=== PATIENT | female | born 1965 | race Caucasian/White ===

== ENCOUNTER 2017-07-10 11:14 | Emergency (ER) | payer OTHER ==
[~2017-07-10] VITALS: Ht 162.6 cm; Wt 80.3 kg
[~2017-07-10 11:14] MED LIST: FLONASE 50 MCG16 GM; KEFLEX 500MG.500 MG PO; NOMEDS XX; NORCO 325 MG-51 TAB PO; PRINIVIL10 MG PO
--- OUTSIDE RECORDS SUMMARY | 2017-07-10 11:22 | External Medical Summary Rpt | CCD ---
Author Author , GIANNA KATZ Address Unknown Phone [email or web address] Care Team Providers Care System Engineer Name Role Phone HARRINGTON ALL, HARRINGTON ALL Unavailable Unavailable FRYMAN EUG, FRYMAN Unavailable Unavailable [facility] Unavailable Unavailable INC, [facility], Unavailable Unavailable [facility] Un[facility]available [facility], [facility] Unavailable Unavailable [facility], [facility], Unavailable Unavailable [facility] Purpose Continuity of Care Document - 07-13-2015 through 2016 Problems Code Diagnosis DOS Provider Status E119 TYPE 2 01-31-2016 [facility] DIABETES [facility] MELLITUS WITHOUT COMPLICATIO NS I10 ESSENTIAL 01-31-2016 [facility] HYPERTENSIO N [id number] UNSPECIFIED 01-31-2016 [facility] ASTHMA [facility] UNCOMPLICAT ED K219 GASTRO-ESOP 01-31-2016 [facility] REFLUX [facility] DISEASE WITHOUT ESOPHAGITIS N200 CALCULUS OF 01-31-2016 [facility] KIDNEY [facility] N201 CALCULUS OF 01-31-2016 [facility] PSC [id number] OTHER LONG 01-31-2016 [facility] CURRENT DRUG THERAPY Z885 ALLERGY 01-31-2016 [facility] STATUS TO HOSPITAL NARCOTIC AGENT STATUS [id number] OTH SPEC 01-11-2016 [facility] DENSITY [facility] ASS STRUCTURE LT THIGH R1031 RIGHT LOWER 01-02-2016 [facility] J309 ALLERGIC 12-28-2015 [facility] UNSPECIFIED GROUP [id number] SPONDYLOSIS 12-28-2015 [facility] W/O MEDICAL MYELOPATH/R IMAGING ASS ADICULOPATH Y LUMB RGN [id number] SPONDYLOSIS 12-28-2015 [facility] W/O MEDICAL MYELOPATH/R IMAGING ASS ADICULPATHY LS RGN M545 LOW BACK 12-28-2015 [facility] PAIN [facility] M546 PAIN IN 12-28-2015 [facility] THORACIC [facility] SPINE [facility] [id number] UNSPECIFIED 12-28-2015 [facility] INJURY [facility]ICAL LOWER BACK IMAGING ASS INITIAL ENCOUNTER R5383 OTHER 07-13-2015 [facility] Procedures Procedure DOS Code Location Performer Comment GLUC BLD 55005 [facility] GLUC MNTR [address] [place] [address] DEV CLEARED FDA SPEC HOME USE INJECTION J[address] CEFAZOLIN SODIUM 500 MG INJECTION J2405 [address] ONDANSETR ON HCL PER 1 MG INJECTION J2704 [facility] PROPOFOL [address] [place] [address] 10 MG INJECTION J3010 [facility] FENTANYL [address] [place] [address] CITRATE 0.1 MG LITHOTRIP 29959 [facility] SY [address] [place] [address] [employer] SHOCK WAVE INJECTION J2001 [address] LIDOCAINE HCL INTRAVENO US INFUS 10 MG RADEX 98493 [facility] ABDOMEN [address] [place] [address] ANTEROPOS TERIOR VIEW ECG [address] ECG W/LEAST 12 LDS TRCG ONLY W/O I&R CUL BACT 11393 TED JE[facility] AEROBIC 6 [facility] ADDL INC INC METHS DEFINITIV E EA ISOL CULTURE 31061 T[facility] BACTERIAL 6 [facility] INC INC QUANTTATI VE COLONY COUNT URINE SUSCEPTIB 28709 TED JEAN LTY STDY 6 [facility]OS[facility] ANTIMICRB INC INC IAL MICRO/AGA R DILUTJ DXA BONE 78916 [facility] ALL DENSITY 6 MEDICAL STUDY 1/> [place] [address] [facility] ALL ABDOMEN & 6 MEDICAL PELVIS IMAGING W/O ASS CONTRAST MATERIAL RADEX 72967 [facility] ALL SPINE 6 MEDICAL THORACIC IMAGING 2 VIEWS ASS RADEX 91595 [facility] ALL SPINE 6 MEDICAL LUMBOSACR IMAGING AL 2/3 ASS VIEWS COLLECTIO 27458 [facility] FRYMAN N VENOUS 6 PHYSICIAN EUG BLOOD S GROUP VENIPUNCT URE Encounters Encounter Start End Date Code Location Performer Type Date HOSPITAL [address] OUTPATIEN [facility] [address]67 [facility]EN 6 6 PHYSICIAN EUG T VISIT S GROUP 15 MINUTES OFFICE 04739 [facility] OUTPATIEN 6 6 PHYSICIAN EUG T VISIT S GROUP 15 MINUTES OFFICE 06539 [facility] OUTPATIEN 5 5 PHYSICIAN EUG T VISIT S GROUP 15 MINUTES
--- OUTSIDE RECORDS SUMMARY | 2017-07-10 11:22 | External Medical Summary Rpt | CCD ---
Author Author , GIANNA KATZ Address Unknown Phone [email or web address] Care Team Providers Care Economic Specialist Name Role Phone HARRINGTON ALL, HARRINGTON ALL Unavailable Unavailable CLEMENCIA JR RIOS, CLEMENCIA Unavailable Unavailable JR RIOS FRYMAN EUG, FRYMAN Unavailable Unavailable [facility] Unavailable Unavailable INC, [facility], Unavailable Unavailable [facility] Unavailable Unavailable [facility], [facility] Unavailable [facility]available [facility], [facility], Unavailable Unavailable [facility] Purpose Continuity of Care Document - 07-13-2015 through 2016 Problems Code Diagnosis DOS Provider Status E119 TYPE 2 01-31-2016 [facility] DIABETES [facility] MELLITUS WITHOUT COMPLICATIO NS I10 ESSENTIAL 01-31-2016 [facility] HYPERTENSIO N [id number] UNSPECIFIED 01-31-2016 [facility] ASTHMA [facility] UNCOMPLICAT ED K219 GASTRO-ESOP 01-31-2016 [facility] REFLUX [facility] DISEASE WITHOUT ESOPHAGITIS N200 CALCULUS OF 01-31-2016 [facility] KIDNEY [facility] N201 CALCULUS OF 01-31-2016 [facility] URETER [facility] H63439 OTHER LONG 01-31-2016 [facility] CURRENT DRUG THERAPY Z885 ALLERGY 01-31-2016 [facility] STATUS TO HOSPITAL NARCOTIC AGENT STATUS Q25663 OTH SPEC 01-11-2016 [facility] D/[facility] BONE MEDICAL DENSITY IMAGING ASS STRUCTURE LT THIGH R1031 RIGHT LOWER 01-02-2016 [facility] J309 ALLERGIC 12-28-2015 [facility] UNSPECIFIED GROUP [id number] SPONDYLOSIS 12-28-2015 [place] W/O MEDICAL MYELOPATH/R IMAGING ASS ADICULOPATH Y LUMB RGN J95977 SPONDYLOSIS 12-28-2015 [place] W/O MEDICAL MYELOPATH/R IMAGING ASS ADICULPATHY LS RGN M545 LOW BACK 12-28-2015 [facility] PAIN [facility]ICAL IMAGING ASS M546 PAIN IN 12-28-2015 [facility] THORACIC MEDICAL SPINE IMAGING ASS [id number] UNSPECIFIED 12-28-2015 [facility] INJURY MEDICAL LOWER BACK IMAGING ASS INITIAL ENCOUNTER R5383 OTHER 07-13-2015 [facility] Allergies, Adverse Reactions, Alerts Clinical Alert Notifications Alert Diabetes: no A1C in the last 6 months Diabetes: no eye exam in the last 365 days Diabetes: no influenza vaccine in the last 365 days Diabetes: no lipid panel in the last 365 days Diabetes: no urine protein screening in the last 365 days Procedures Procedure DOS Code Location Performer Comment INJECTION J2001 [address] LIDOCAINE HCL INTRAVENO US INFUS 10 MG RADEX 67856 [facility] ABDOMEN [address] [place] [address] ANTEROPOS TERIOR VIEW ECG [address] ECG W/LEAST 12 LDS TRCG ONLY W/O I&R LITHOTRIP 15746 [facility] K[facility]ANNA [facility] 6 [facility] CL[facility] SHOCK PSC WAVE INJECTION J2704 [facility] PROPOFOL [address] [place] [address] 10 MG INJECTION J3010 [facility] FENTANYL [address] [place] [address] CITRATE 0.1 MG INJECTION J2405 [address] ONDANSETR ON HCL PER 1 MG GLUC BLD 06279 [facility] GLUC MNTR [address] [place] [address] DEV CLEARED FDA SPEC HOME USE INJECTION J[address] CEFAZOLIN SODIUM 500 MG SUSCEPTIB 12408 TED JE[facility] LTY STDY 6 [facility] ANTIMICRB INC INC IAL MICRO/AGA R DILUTJ CUL BACT 44723 [facility] AEROBIC [address] [facility]OS[facility] ADDL INC INC METHS DEFINITIV E EA ISOL CULTURE 18693 TED JEAN BACTERIAL [address] [facility] HOS[facility] INC INC QUANTTATI VE COLONY COUNT URINE DXA BONE 18916 [facility] ALL DENSITY 6 MEDICAL STUDY 1/> [place] [address] [facility] ALL ABDOMEN & 6 MEDICAL PELVIS IMAGING W/O ASS CONTRAST MATERIAL RADEX 47482 [facility] ALL SPINE 6 MEDICAL THORACIC IMAGING 2 VIEWS ASS RADEX 97006 [facility] ALL SPINE 6 MEDICAL LUMBOSACR IMAGING AL 10/[address] [facility] PHYSICIAN EUG BLOOD S GROUP VENIPUNCT URE Encounters Encounter Start End Date Code Location Performer Type Date [facility] [address] [facility] [place] [address] 6 [facility] [address] [facility] 6 6 PHYSICIAN EUG T VISIT S GROUP 15 MINUTES OFFICE 08896 [facility] 6 PHYSICIAN EUG T VISIT S GROUP 15 MINUTES OFFICE 48379 [facility] 5 5 PHYSICIAN EUG T VISIT S GROUP 15 MINUTES
--- OUTSIDE RECORDS SUMMARY | 2017-07-10 11:22 | External Medical Summary Rpt | CCD ---
Author Author , GIANNA KATZ Address Unknown Phone [email or web address] Care Team Providers Care Rn Peritoneal Dialysis Name Role Phone HARRINGTON ALL, HARRINGTON ALL Unavailable Unavailable FRYMAN EUG, FRYMAN Unavailable Unavailable [facility] Unavailable Unavailable INC, [facility], Unavailable Unavailable [facility] Unavailable Unavailable [facility], [facility] Unavailable Unavailable [facility], Unavailable Unavailable [facility] Purpose Continuity of Care Document - 07-13-2015 through 2016 Problems Code Diagnosis DOS Provider Status E119 TYPE 2 01-31-2016 [facility] DIABETES [facility] MELLITUS WITHOUT COMPLICATIO NS I10 ESSENTIAL 01-31-2016 [facility] HYPERTENSIO N U35063 UNSPECIFIED 01-31-2016 [facility] ASTHMA [facility] UNCOMPLICAT ED K219 GASTRO-ESOP 01-31-2016 [facility] REFLUX [facility] DISEASE WITHOUT ESOPHAGITIS N200 CALCULUS OF 01-31-2016 [facility] KIDNEY [facility] N201 CALCULUS OF 01-31-2016 [facility] PSC G24356 OTHER LONG 01-31-2016 [facility] CURRENT DRUG THERAPY Z885 ALLERGY 01-31-2016 [facility] STATUS TO HOSPITAL NARCOTIC AGENT STATUS S75424 OTH SPEC 01-11-2016 [place] D/[facility] BONE MEDICAL DENSITY IMAGING ASS STRUCTURE LT THIGH R1031 RIGHT LOWER 01-02-2016 [place] J309 ALLERGIC 12-28-2015 [facility] PHYSICIANS UNSPECIFIED GROUP [id number] SPONDYLOSIS 12-28-2015 [place] W/O MEDICAL MYELOPATH/R IMAGING ASS ADICULOPATH Y LUMB RGN W60481 SPONDYLOSIS 12-28-2015 [place] W/O MEDICAL MYELOPATH/R IMAGING ASS ADICULPATHY LS RGN M545 LOW BACK 12-28-2015 [place] PAIN [facility] M546 PAIN IN 12-28-2015 [place] TH[facility]ACIC [facility] SPINE IMAGING ASS [id number] UNSPECIFIED 12-28-2015 [place] INJURY MEDICAL LOWER BACK IMAGING ASS INITIAL ENCOUNTER R5383 OTHER 07-13-2015 [facility] Procedures Procedure DOS Code Location Performer Comment GLUC BLD 56439 [facility] GLUC MNTR [address] [place] [address] DEV CLEARED FDA SPEC HOME USE INJECTION J[address] CEFAZOLIN SODIUM 500 MG INJECTION J2405 [address] ONDANSETR ON HCL PER 1 MG INJECTION J2704 [facility] PROPOFOL [address] [place] [address] 10 MG INJECTION J3010 [facility] FENTANYL [address] [place] [address] CITRATE 0.1 MG LITHOTRIP 67154 [facility] SY [address] [place] [address] [employer] SHOCK WAVE INJECTION J[address] LIDOCAINE HCL INTRAVENO US INFUS 10 MG RADEX 31649 [facility] ABDOMEN [address] [place] [address] ANTEROPOS TERIOR VIEW ECG [address] ECG W/LEAST 12 LDS TRCG ONLY W/O I&R CUL BACT 25054 TED JEAN AEROBIC 6 [facility] ADDL INC INC METHS DEFINITIV E EA ISOL CULTURE 88540 [facility]ED JE[facility] BACTERIAL 6 [facility] INC INC QUANTTATI VE COLONY COUNT URINE SUSCEPTIB 65343 TED JEAN LTY STDY 6 [facility] ANTIMICRB INC INC IAL MICRO/AGA R DILUTJ DXA BONE 70533 [facility] ALL DENSITY 6 MEDICAL STUDY 1/> [place] [address] [facility] ALL ABDOMEN & 6 MEDICAL PELVIS IMAGING W/O ASS CONTRAST MATERIAL RADEX 79179 [facility] ALL SPINE 6 MEDICAL THORACIC IMAGING 2 VIEWS ASS RADEX 23280 [facility] ALL SPINE 6 MEDICAL LUMBOSACR IMAGING AL 2/3 ASS VIEWS COLLECTIO 05017 [facility] FRYMAN N VENOUS 6 PHYSICIAN EUG BLOOD S GROUP VENIPUNCT URE Encounters Encounter Start End Date Code Location Performer Type Date HOSPITAL [address] OUTPATIEN [facility] 20502 [facility] OUTPATIEN 6 6 PHYSICIAN EUG T VISIT S GROUP 15 MINUTES OFFICE 85227 [facility] OUTPATIEN 6 6 PHYSICIAN EUG T VISIT S GROUP 15 MINUTES OFFICE 47952 [facility] OUTPATIEN 5 5 PHYSICIAN EUG T VISIT S GROUP 15 MINUTES
--- OUTSIDE RECORDS SUMMARY | 2017-07-10 11:22 | External Medical Summary Rpt | CCD ---
Author Author , GIANNA KATZ Address Unknown Phone [email or web address] Care Team Providers Care Jewel Oliving Machine Operator Name Role Phone HARRINGTON ALL, HARRINGTON ALL Unavailable Unavailable CLEMENCIA JR RIOS, CLEMENCIA Unavailable Unavailable JR RIOS FRYMAN EUG, FRYMAN Unavailable Unavailable [facility] Unavailable Unavailable INC, [facility], [facility]available Unavailable [facility] Unavailable [facility]available [facility], [facility] Unavailable Unavailable [facility], [facility], Unavailable Unavailable [facility] Purpose Continuity of Care Document - 07-13-2015 through 2016 Problems Code Diagnosis DOS Provider Status E119 TYPE 2 01-31-2016 [facility] DIABETES [place] [facility] MELLITUS WITHOUT COMPLICATIO NS I10 ESSENTIAL 01-31-2016 [facility] HYPERTENSIO N [id number] UNSPECIFIED 01-31-2016 [facility] ASTHMA [facility] UNCOMPLICAT ED K219 GASTRO-ESOP 01-31-2016 [facility] REFLUX [place] [facility] DISEASE WITHOUT ESOPHAGITIS N200 CALCULUS OF 01-31-2016 [facility] KIDNEY [place] [facility] N201 CALCULUS OF 01-31-2016 [facility] I40965 OTHER LONG 01-31-2016 [facility] CURRENT DRUG THERAPY Z885 ALLERGY 01-31-2016 [facility] STATUS TO HOSPITAL NARCOTIC AGENT STATUS S41424 OTH SPEC 01-11-2016 [place] D/[facility] BONE MEDICAL DENSITY IMAGING ASS STRUCTURE LT THIGH R1031 RIGHT LOWER 01-02-2016 [place] [facility] PA[facility] J309 ALLERGIC 12-28-2015 [facility] RH[facility] PHYSICIANS UNSPECIFIED GROUP S95157 SPONDYLOSIS 12-28-2015 [place] W/O MEDICAL MYELOPATH/R IMAGING ASS ADICULOPATH Y LUMB RGN X51997 SPONDYLOSIS 12-28-2015 [place] W/O MEDICAL MYELOPATH/R IMAGING ASS ADICULPATHY LS RGN M545 LOW BACK 12-28-2015 [place] PAIN [facility]ICAL IM[facility] ASS M546 PAIN IN 12-28-2015 [place] THORACIC [facility] SPINE IMAGING ASS [id number] UNSPECIFIED 12-28-2015 [place] INJURY MEDICAL LOWER BACK IMAGING ASS INITIAL ENCOUNTER R5383 OTHER 07-13-2015 [facility] Allergies, Adverse Reactions, [...] DOS Code Location Performer Comment INJECTION J2001 [address] LIDOCAINE HCL INTRAVENO US INFUS 10 MG RADEX 92938 [facility] ABDOMEN [address] [place] [address] ANTEROPOS TERIOR VIEW ECG [address] ECG W/LEAST 12 LDS TRCG ONLY W/O I&R LITHOTRIP 82726 [facility]MAR KHANNA [facility] 6 [facility] SHOCK PSC WAVE INJECTION J2704 [facility] PROPOFOL [address] [place] [address] 10 MG INJECTION J3010 [facility] FENTANYL [address] [place] [address] CITRATE 0.1 MG INJECTION J2405 [address] ONDANSETR ON HCL PER 1 MG GLUC BLD 26394 [facility] GLUC MNTR [address] [place] [address] DEV CLEARED FDA SPEC HOME USE INJECTION J[address] CEFAZOLIN SODIUM 500 MG SUSCEPTIB 10069 TED JEAN LTY STDY [address] [facility] ANTIMICRB INC INC IAL MICRO/AGA R DILUTJ CUL BACT 72806 TED JE[facility] AEROBIC 6 [facility]OS[facility] ADDL INC INC METHS DEFINITIV E EA ISOL CULTURE 99056 TED JEAN BACTERIAL 6 [facility] HOS[facility] INC INC QUANTTATI VE COLONY COUNT URINE DXA BONE 78273 [facility] ALL DENSITY 6 MEDICAL STUDY 1/> [place] [address] [facility] ALL ABDOMEN & 6 MEDICAL PELVIS IMAGING W/O ASS CONTRAST MATERIAL RADEX 71624 [facility] ALL SPINE 6 MEDICAL THORACIC IMAGING 2 VIEWS ASS RADEX 38949 [place] [facility] ALL SPINE 6 MEDICAL LUMBOSACR IMAGING [place] 10/26 ASS VIEWS COLLECTIO 20033 [facility] 6 PHYSICIAN EUG BLOOD S GROUP VENIPUNCT URE Encounters Encounter Start End Date Code Location Performer Type Date [place] [facility] [address] [facility] [place] [address] 6 [facility] [address] [facility] 6 6 PHYSICIAN EUG T VISIT S GROUP 15 MINUTES OFFICE 15387 [facility] PHYSICIAN EUG T VISIT S GROUP 15 MINUTES OFFICE 33964 [facility] 5 5 PHYSICIAN EUG T VISIT S GROUP 15 MINUTES
--- OUTSIDE RECORDS SUMMARY | 2017-07-10 11:23 | External Medical Summary Rpt | CCD ---
Demographics Preferred Language Sudanese Marital Status Unknown Christian Affiliation Unknown Race Unknown Ethnic Group Unknown Author Author , GIANNA KATZ Address Unknown Phone Immunization Unable to retrieve immunization data due to connection failure with Immunization Registry. Please try again later.
--- OUTSIDE RECORDS SUMMARY | 2017-07-10 11:23 | External Medical Summary Rpt | CCD ---
Demographics Preferred Language Central African Marital Status Unknown Tenriism Affiliation Unknown Race Unknown Ethnic Group Unknown Author Author , GIANNA KATZ Address Unknown Phone Immunization Unable to retrieve immunization data due to connection failure with Immunization Registry. Please try again later.
--- NOTE | 2017-07-10 11:40 | Urgent Treatment Center Report ---
History of Present Issue Date/Time Seen by Provider 07/10/17 1135 Visit Reason Pt arrived:Walked Presenting Problem:PT C/O OF LEFT PLEURITIC CHEST PAIN HAS BEEN SICK FOR A WEEK AND COUGHING. NO FEVER Location if Accident: Onset of symptoms date/time:07/03/1708/09/800 or onset unknown for: Have you (or family members/close friends) recently traveled outside the [place]? N If Yes, where/when: Have you had exposure to infectious disease within the past month? TB? Other? Specify: Patient state that she is having pain in her left side State that pain is worse with movement or cough. State that pain is in her left rib area and side. State that it feels like she has pulled a muscle coughing State that she is not coughing anything up State that when she tries to move or lift something she feels the pain in her rib area. ALLERGIES Coded Allergies: APPLE (FOOD) (From APPLE (FOOD/DRUG)) (Mild, I-HIVES 07/10/17) apple (From APPLE (FOOD/DRUG)) (Mild, I-HIVES 07/10/17) codeine (07/10/17) milk (07/10/17) Home Medications Active Scripts CEPHALEXIN (Keflex 500MG Capsule) 500 MG PO Q8H #30 CAP Prov: 12/20/14 HYDROCODONE/ACETAMINOPHEN ([place] 5-325 Tablet) 1 TAB PO Q6HP PRN pain #10 TAB Prov: 12/20/14 Reported Medications No Home Medications (NO HOME MEDICATIONS) 1 EACH XX ONCE LISINOPRIL (Lisinopril) 10 MG PO DAILY Fluticasone Propionate (Flonase 50 Mcg Nasal [place]) 1 SPRAY NA BID History Medical History General CAD? No Angina: No [place]: No Hypertension? Yes Hyperlipidemia? Yes CHF? No COPD? No Asthma? Yes Anemia? No Hernia? No Thyroid Problems? No CVA? No Seizures? No Diabetes? Yes UTI? No Stones? No GB Disease: No Nephritic Syndrome? No Asplenia? No Hepatitis? No Sickle Cell Disease? No Arthritis? No MRSA? No TB? No Cancer? No Immunization HX DT/Tetanus 1-4 Years Ago Surgical Hx Previous Surgery?Y X 2 EAR Family History Family HX Hypertension Yes Cancer Yes Social History Smoking Hx Smoker: Never Smoker Tobacco: No Alcohol Alcohol: No Review of Systems All Other Systems Reviewed and Negative Comment Pain in left side and rib area when she moves, tries to lift something or when she coughs State that she has been having this pain for about a month now on and off Physical Exam Vital Signs Vital Signs Date Time Temp Pulse Resp B/P Pulse O2 O2 Flow FiO2 Ox Delivery Rate 07/10 1131 97.9 79 20 158/84 99 General Appearance Patient appears ill sitting in exam chair Respiratory Status Yes: trachea midline, chest symmetrical. No: respiratory distress. Lung Sounds bilateral: normal breath sounds. Cardiovascular normal exam, regular rate/rhythm Neurologic alert, normal exam, oriented x 3 Comments Left side/rib pain that is worsened with movement or cough that has been occuring now for over a month Patient describes it as "muscle pain" denies chest pain, denies shortness of breath, denies pain radiation Medical Decision Making LABS/Meds/Orders Pt receiving controlled substance in ED? No Results/Orders Current Medication Orders Sig/Carlos Start time Last Medication Dose Route Stop Time Status Admin Levofloxacin 500 MG ONCE ONE 07/10 1230 AC PO 07/10 1231 XRAY/CT/US XRAY/CT/US XRAY chest XR interpretation by discussed w/radiologist Xray Results Atelectasis or infiltrate lingula Comment xray read by radiologist Departure Departure Time of Disposition 1223 Disposition DC Home or Self Care(routine) Clinical Impression Primary Impression: Lung infiltrate Condition STABLE Referrals Pilar Chamberlain APRN Patient Instructions Pneumonia-Adult Additional Instructions * Monitor Temp. Tylenol and/or Ibuprofen as needed. ER if fever is no less than 101 despite alternating Tylenol and Ibuprofen * Encourage fluids, water, Gatorade, powerade, pedialyte if /toddler/or child * Warm salt water gargles for throat irritation *Warm fluids *Sore throat lozenges *Sleep elevated *humidifier or vaporizer Lots of rest Increase fluids, water, Gatorade, powerade *Flonase 2 sprays each nostril daily but may take 2-3 days to notice improvement with it Follow up IMMEDIATELY for new or worsening of symptoms OR no noticeable improvement over the next 48-72 hours. 911 immediately for any life threatening symptoms such as chest pain or difficulty breathing Follow up with family doctor immediately if symptoms worsen or do not improve after antibiotics Follow up with family doctor to repeat xray per family doctors request to make sure the medication has worked Discharge Counseling Counseled pt/family regarding diagnosis, test results, medications/RX, home care, follow up needs Prescriptions Current Visit Scripts Benzonatate (Tessalon Perle) 100 MG PO TID #15 SGL Levofloxacin (Levaquin 500MG) 500 MG PO DAILY #10 TAB at 2780
--- NOTE | 2017-07-10 12:16 | RADIOLOGY REPORT PS360 ---
CHEST(2 VIEWS-NOT PORTABLE) HISTORY: cough ORDERING PHYSICIAN: IDALIA CEJA APRN PATIENT AGE: 52 years COMPARISON: None available FINDINGS: The cardiomediastinal silhouette and pulmonary vascularity are within normal limits. Increased markings are present in the lingula may be due to atelectasis or infiltrate.. No acute bony abnormalities. IMPRESSION: Atelectasis or infiltrate in the lingula otherwise negative
[2017-07-10] MEDS ORDERED: LEVAQUIN500 MG PO (12:27)
[2017-07-10] MEDS ORDERED: TESSALON PERLE100 M1 PO (12:27)
[2017-07-10 12:33] VITALS: BP 158/84
== END 2017-07-10 12:33 | disposition home or self-care (01) ==
LOC: UTC 11:14
DX: R91.8 Other nonspecific abnormal finding of lung field (principal); I10 Essential (primary) hypertension; J45.909 Unspecified asthma, uncomplicated; E11.9 Type 2 diabetes mellitus without complications; Z79.51 Long term (current) use of inhaled steroids; Z79.899 Other long term (current) drug therapy